=== PATIENT | male | born 1950 | race Caucasian/White ===

== ENCOUNTER 2018-11-17 00:02 | Outpatient (CLI) | payer OTHER, SELFPAY ==
--- NOTE | 2018-11-17 08:15 | MERGEMPI_ITS ---
*[facility]* *[facility]* [address] [place] [address] Myocardial Perfusion Imaging - SPECT Vikas protocol Date of study: 11/17/2018 *PATIENT PRESENTATION* Height: 177.8cm (70in) Blood Pressure: Weight: 68.2kg (150lb) BSA: 1.83m^2 Referring physician: Artem Barrientos MD Ordering physician: Chaka Schaffer Impressions: Normal perfusion by Tc99m Sestamibi Imaging. Summary: 1. Myocardial perfusion imaging: No myocardial perfusion defects noted. 2. The calculated left ventricular ejection fraction after stress: 57%. 3. Stress: The target heart rate was achieved. Indication: Z01.810, R91.8. History: REASON FOR TESTING: PRE-OPERATIVE CARDIOVASCULAR TESTING R/T HIGH RISK SURGERY. PATIENT DENIES CHEST PAIN UPON ARRIVAL TO TESTING TODAY. SIGNIFICANT PAST MEDICAL HISTORY: SOLITARY PULMONARY NODULE. SMOKING STATUS: QUIT OCTOBER 2018. 55 YEAR 2 PPD HISTORY. EXERCISE ROUTINE: DAILY ADL'S. ALLERGIES: NO KNOWN MEDICATION ALLERGIES. MEDICATIONS: PATIENT REPORTS HE TAKES VITAMINS--DOES NOT KNOW NAMES AND DOSES. Imaging Technique: Protocol: Vikas protocol. Acquisition: Gated SPECT; 1 day - rest/stress. The patient was imaged in the supine position. Attenuation correction used. Isotope administration: - Rest. Tc[99m]-sestamibi. Dose: 10.3mCi. Injection time: 08:15 AM. Injection to stress time: 00:45. - Stress. Tc[99m]-sestamibi. Dose: 32.3mCi. Injection time: 09:44 AM. 1-2 min before end of exercise Baseline ECG: SINUS BRADYCARDIA. HR 45 BPM. Stress protocol: + +---+ + !Stage !HR !BP (mmHg) ! + +---+ + !Baseline supine !45 !122/68 (86) ! + +---+ + !Baseline standing !55 !126/64 (85) ! + +---+ + !Stage I; 1.7mph, 10degrees; 3 min !119!140/70 (93) ! + +---+ + !Stage II; 2.5mph, 12degrees; 3 min!136!164/72 (103)! + +---+ + !Peak stress !145! ! + +---+ + !Recovery; 1 min !119!134/48 (77) ! + +---+ + !Recovery; 3 min !76 !130/50 (77) ! + +---+ + !Recovery; 6 min !70 !120/60 (80) ! + +---+ + !Recovery; 9 min !68 !120/64 (83) ! + +---+ + * Stress results: STRESS TEST ENDED IN 6 MINUTES 39 SECONDS DUE TO LEG FATIGUE. NORMAL HEART RATE AND BLOOD PRESSURE RESPONSE TO EXERCISE. MAX HEART RATE: 145 95 % OF TARGET HEART RATE ACHIEVED. MET'S: 8.03 RARE PVC AT APPROXIMATELY 1 MINUTE OF RECOVERY. NO ANGINA. NO ST SEGMENT CHANGES. MILDLY DIMINISHED FUNCTIONAL CAPACITY. Maximal heart rate during stress was 145bpm (95% of maximal predicted heart rate). The maximal predicted heart rate was 152bpm. The target heart rate was achieved. The rate-pressure product for the peak heart rate and blood pressure was 12286aq Hg/min. Myocardial perfusion: Imaging information: gated. No myocardial perfusion defects noted. Ventricular Function (Wall Motion): The calculated left ventricular ejection fraction after stress: 57%. Study data: Artem Barrientos MD supervised and was readily available during the procedure. This study was interpreted by [facility]. Study status: Routine. Consent: The risks, benefits, and alternatives to the procedure were explained to the patient and informed consent was obtained. Procedure: Initial setup. A baseline ECG was recorded. Surface ECG leads and manual cuff blood pressure measurements were monitored. Heart sounds: Normal. Lung sounds: Normal. Treadmill exercise testing was performed using the Vikas protocol. Study completion: All catheters inserted during the procedure were removed. The patient tolerated the procedure well and was discharged from the lab. Discharge: The patient left the laboratory in stable condition. Birthdate: Patient birthdate: 1950. Sex: Gender: male. Study date: Study date: 11/17/2018. Study time: 00:01 AM. Electronically signed by Artem Barrientos MD 11/17/2018 17:01
== END 2018-11-17 00:22 ==
PROVIDERS: PCP Physician Assistant; Visit Provider Internal Medicine Pulmonary Disease
DX: R91.1 Solitary pulmonary nodule (principal); Z87.891 Personal history of nicotine dependence; Z01.818 Encounter for other preprocedural examination
CPT/HCPCS: 78452; 93017

== ENCOUNTER 2018-11-20 00:31 | Outpatient (CLI) | payer OTHER, SELFPAY ==
--- NOTE | 2018-11-20 07:32 | MERGE_ITS ---
*[facility]* *[facility]* [address] [place] [address] Date of study: 11/20/2018 Transthoracic Echocardiography M-mode, complete 2D, complete spectral Doppler, and color Doppler *STUDY CONCLUSIONS* Summary: 1. Left ventricle: The cavity size was normal. Wall thickness was normal. Systolic function was normal. The estimated ejection fraction was 55-60%. Wall motion was normal; there were no regional wall motion abnormalities. 2. Mitral valve: There was mild regurgitation. 3. Right ventricle: The cavity size was normal. Wall thickness was normal. Systolic function was normal. 4. Atrial septum: No defect or patent foramen ovale was identified. Agitated saline contrast study showed no atrial level shunt, at baseline or with provocation. 5. Pulmonary arteries: Pulmonary systolic pressure was mildly increased, in the range of 35mm Hg to 40mm Hg. *PATIENT PRESENTATION* Height: 177.8cm ((70in) ) S/D Pressure: 134 / 70 Weight: 68kg ((149.7lb) ) BSA: 1.83m^2 Test start time: 07:40 AM. Test stop time: 09:00 AM. PERFORMING Unknown PERFORMING [facility] RESIDENTIAL INSTRUCTOR RT Danyelle Cardoso)(CT), [place], [place] Chaka Narayanan REFERRING Chaka Schaffer REFERRING Aaron Monterroso *PROCEDURE DATA* Procedure information: The patient was identified by two identifiers. This study was interpreted by [facility]. Pertinent images and digital data are archived for permanent storage and are available for subsequent review. No prior study was available for comparison. Study status: Routine. Transthoracic echocardiography. M-mode, complete 2D, complete spectral Doppler, and color Doppler. A Transthoracic Echocardiogram was performed. Scanning was performed from the parasternal, apical, subcostal, and suprasternal notch acoustic windows. Images were obtained using an [id number] cardiac ultrasound machine. Image quality was adequate. Intravenous contrast (normal saline) was administered by ANJEL OVIEDO to enhance delineation of left ventricular endocardial borders. Prior to administration at least two (2) contiguous segments of the left ventricular border were not visualized. A total amount of 20ml of saline was used. The saline was administered by ANJEL OVIEDO . Study completion: The patient tolerated the procedure well. There were no complications. History: PMH: Pre op study- high risk cardiovascular surgery. lung mass right. heart murmur right side appreciated 11/11/18 r01.1, r91.8. *CARDIAC ANATOMY* Left ventricle: The cavity size was normal. Wall thickness was normal. Systolic function was normal. The estimated ejection fraction was 55-60%. Wall motion was normal; there were no regional wall motion abnormalities. Diastolic parameters were normal. Aortic valve: Trileaflet; normal thickness, mildly calcified leaflets. Mobility was not restricted. Doppler: Transvalvular velocity was within the normal range. There was no stenosis. There was no significant regurgitation. VTI ratio of LVOT to aortic valve: 0.76. Valve area (VTI): 2.5cm^2. Indexed valve area (VTI): 1.4cm^2/m^2. Peak velocity ratio of LVOT to aortic valve: 0.78. Valve area (Vmax): 2.6cm^2. Indexed valve area (Vmax): 1.4cm^2/m^2. Mean velocity ratio of LVOT to aortic valve: 0.72. Valve area (Vmean): 2.4cm^2. Indexed valve area (Vmean): 1.3cm^2/m^2. Mean gradient (S): 4.2mm Hg. Peak gradient (S): 7.1mm Hg. Aorta: Aortic root: The aortic root was normal in size. Mitral valve: Structurally normal valve. Mobility was not restricted. Doppler: Transvalvular velocity was within the normal range. There was no evidence for stenosis. There was mild regurgitation. Valve area by pressure half-time: 4cm^2. Indexed valve area by pressure half-time: 2.2cm^2/m^2. Peak gradient (D): 2.3mm Hg. Left atrium: The atrium was normal in size. Atrial septum: No defect or patent foramen ovale was identified. Agitated saline contrast study showed no atrial level shunt, at baseline or with provocation. Right ventricle: The cavity size was normal. Wall thickness was normal. Systolic function was normal. Pulmonic valve: Doppler: Transvalvular velocity was within the normal range. There was no evidence for stenosis. There was no significant regurgitation. Peak gradient (S): 4.4mm Hg. Tricuspid valve: Structurally normal valve. Doppler: Transvalvular velocity was within the normal range. There was no evidence for stenosis. There was trivial regurgitation. Pulmonary artery: Pulmonary systolic pressure was mildly increased, in the range of 35mm Hg to 40mm Hg. Right atrium: The atrium was normal in size. 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 Pericardium: There was no pericardial effusion. Systemic veins: Inferior vena cava: Well visualized. The vessel was patent and normal in size. The respirophasic diameter changes were in the normal range (greater than or equal to 50%). Baseline ECG: Sinus bradycardia. Measurements Left ventricle Value Reference LV ID, ED, PLAX 5.2 cm 3.5 - 6.0 LV ID, ES, PLAX 3.7 cm 2.1 - 4.0 LV PW thickness, ED, PLAX 0.8 cm LV end-diastolic volume, 1-p A2C 92 ml LV ejection fraction, 1-p A2C 60 % LV end-diastolic volume, 1-p A4C 122 ml LV ejection fraction, 1-p A4C 62 % LV e', lateral 0.129 m/sec LV E/e', lateral 6 LV e', medial 0.084 m/sec LV E/e', medial 9 LV e', average 0.106 m/sec LV E/e', average 7 Ventricular septum Value Reference IVS thickness, ED, PLAX 0.7 cm LVOT Value Reference LVOT ID, A-P 2.1 cm LVOT area 3.3 cm^2 LVOT peak velocity, S 1.04 m/sec LVOT mean velocity, S 0.71 m/sec LVOT VTI, S 24.9 cm LVOT peak gradient, S 4.4 mm Hg LVOT mean gradient, S 2.3 mm Hg Stroke volume (SV), LVOT DP 82 ml Stroke index (SV/bsa), LVOT DP 45 ml/m^2 Aortic valve Value Reference Aortic valve peak velocity, S 1.3 m/sec Aortic valve mean velocity, S 0.98 m/sec Aortic valve VTI, S 33.0 cm Aortic mean gradient, S 4.2 mm Hg Aortic peak gradient, S 7.1 mm Hg VTI ratio, LVOT/AV 0.76 Aortic valve area, VTI 2.5 cm^2 Velocity ratio, peak, LVOT/AV 0.78 Aortic valve area, peak velocity 2.6 cm^2 Velocity ratio, mean, LVOT/AV 0.72 Aortic valve area, mean velocity 2.4 cm^2 Aortic valve area/bsa, mean velocity 1.3 cm^2/m^2 Aorta Value Reference Aortic root ID, ED 2.9 cm Ascending aorta ID, A-P, S 3.1 cm Left atrium Value Reference LA ID, A-P, ES 3.0 cm LA ID/bsa, A-P 1.6 cm/m^2 <=2.2 LA area, ES, A4C 21.3 cm^2 8.8 - 23.4 LA area, ES, A2C 21 cm^2 LA volume/bsa, ES, 1-p A4C 42 ml/m^2 LA volume, ES, 2-p 64 ml LA volume/bsa, ES, 2-p 35 ml/m^2 LA/aortic root ratio 1.02 Mitral valve Value Reference Mitral E-wave peak velocity 0.76 m/sec Mitral A-wave peak velocity 0.54 m/sec Mitral deceleration time 189 ms 150 - 230 Mitral pressure half-time 55 ms Mitral peak gradient, D 2.3 mm Hg Mitral E/A ratio, peak 1.4 Mitral valve area, PHT, DP 4 cm^2 Pulmonary veins Value Reference Pulmonary vein peak velocity, S 0.72 m/sec Pulmonary vein peak velocity, D 0.76 m/sec Pulmonary vein velocity ratio, peak, 0.94 S/D Pulmonary vein A-wave reversal peak 0.32 m/sec velocity Pulmonary vein A-wave reversal 138 ms duration Tricuspid valve Value Reference Tricuspid regurg peak velocity 2.7 m/sec Tricuspid peak RV-RA gradient 29.6 mm Hg Right atrium Value Reference RA area, ES, A4C 15.4 cm^2 8.3 - 19.5 Pulmonic valve Value Reference Pulmonic peak gradient, S 4.4 mm Hg Legend: (L) and (H) maria c values outside specified reference range. I have personally reviewed the images and have reviewed and edited the reported findings. Electronically signed by Harsh Esteban 11/20/2018 12:00
[2018-11-20] MEDS: Normal Saline Flush 10 ML SYR 20 ML IVP (12:57)
== END 2018-11-20 00:51 ==
PROVIDERS: PCP Physician Assistant; Visit Provider Internal Medicine Pulmonary Disease
DX: R01.1 Cardiac murmur, unspecified (principal); R91.8 Other nonspecific abnormal finding of lung field; I34.0 Nonrheumatic mitral (valve) insufficiency; Z01.818 Encounter for other preprocedural examination
CPT/HCPCS: 93306

== ENCOUNTER 2020-05-31 08:21 | Outpatient (CLI) | payer OTHER, SELFPAY ==
[2020-06-03 17:00] LABS: Patient Race White; SARS-CoV-2 RNA Undetected (Undetected); SARS-CoV-2 Specimen Source Nasopharynx
== END 2020-05-31 08:41 ==
PROVIDERS: PCP Physician Assistant; Visit Provider Surgery
DX: Z03.818 Encounter for observation for suspected exposure to other biological agents ruled out (principal)
CPT/HCPCS: U0003